=== PATIENT | female | born 2000 | race African-American/Black ===

== ENCOUNTER 2022-07-21 18:52 | Emergency (ER) | payer SELFPAY ==
[~2022-07-21] VITALS: Ht 175.3 cm; Wt 75.0 kg
[2022-07-21 18:56] VITALS: BP 118/60
[2022-07-21] MEDS ORDERED: ACETAMINOPHEN 325MG TABLET PO ONE (21:00)
[2022-07-21] MEDS ORDERED: ACET-2708 MT (22:59)
== END 2022-07-21 23:14 | disposition home or self-care (01) ==
LOC: ER 18:52
DX: S09.90XA Unspecified injury of head, initial encounter (principal); V49.59XA Passenger injured in collision with other motor vehicles in traffic accident, initial encounter; Y93.89 Activity, other specified; Y92.89 Other specified places as the place of occurrence of the external cause; Y99.8 Other external cause status; D64.9 Anemia, unspecified
CPT/HCPCS: 81025; 99284